=== PATIENT | female | born 1965 | race Caucasian/White ===

== ENCOUNTER 2022-02-15 02:05 | Emergency (ER) | payer SELFPAY ==
[~2022-02-15] VITALS: Ht 165.1 cm; Wt 150.0 kg
[2022-02-15 02:14] VITALS: BP 139/86
[2022-02-15] MEDS ORDERED: ONDA4TAB12 PO (17:33)
[2022-02-15] MEDS ORDERED: CEPH250T PO (17:33)
== END 2022-02-15 04:52 | disposition left against medical advice (07) ==
LOC: ER 02:06
DX: R10.9 Unspecified abdominal pain (principal); Z53.21 Procedure and treatment not carried out due to patient leaving prior to being seen by health care provider

== ENCOUNTER 2022-02-15 15:17 | Emergency (ER) | payer MEDICAID ==
[~2022-02-15] VITALS: Ht 162.6 cm; Wt 63.6 kg
[2022-02-15] MEDS ORDERED: acetaminophen 325mg tablet PO STA (16:05)
[2022-02-15] MEDS ORDERED: normal saline 1000ML IV soln IV ONE (16:05)
[2022-02-15] MEDS ORDERED: proCHLORperazine 10 MG/2 ml inj IV ONE (16:05)
[2022-02-15 16:23] LABS: MEAN PLATELET VOLUME 8.4 FL (7.4-10.4); WHITE BLOOD COUNT 13.1 X10'3 (4.5-11.0)
[2022-02-15 16:25] LABS: BASOPHILS % (AUTO) 0.2 % (0-1); EOSINOPHILS % (AUTO) 0 % (0-6); HEMATOCRIT 43.7 % (35.0-45.0); LYMPHOCYTES # (AUTO) 1.2 X10'3 (1.1-4.8); LYMPHOCYTES % (AUTO) 8.9 % (21-51); MEAN CORPUSCULAR HEMOGLOBIN 30.8 PG (27.0-31.0); MEAN CORPUSCULAR HGB CONC 34.4 g/dL (33.0-36.5); MEAN CORPUSCULAR VOLUME 89.6 FL (78-98); MONOCYTES # (AUTO) 0.8 X10'3 (0-0.9); MONOCYTES % (AUTO) 6.4 % (2-12); NEUTROPHILS # (AUTO) 11.1 X10'3 (1.8-7.7); NEUTROPHILS % (AUTO) 84.5 % (42-75); PLATELET COUNT 293 X10'3 (140-440); RED BLOOD COUNT 4.87 X10'6 (4.20-5.60); RED CELL DISTRIBUTION WIDTH 12.5 % (11.5-14.5)
[2022-02-15 16:42] LABS: ALANINE AMINOTRANSFERASE 24 U/L (12-78); ALBUMIN 5.1 G/DL (3.4-5.0); ALBUMIN/GLOBULIN RATIO 1.2 (1.1-1.5); ALKALINE PHOSPHATASE 80 IU/L (46-116); ANION GAP 17 (8-16); ASPARTATE AMINO TRANSFERASE 22 U/L (10-37); BILIRUBIN,TOTAL 1.4 MG/DL (0.1-1.0); BLOOD UREA NITROGEN 18 MG/DL (7-18); BUN/CREATININE RATIO 18.6 (6.6-38.0); CALCIUM 10.2 MG/DL (8.5-10.1); CHLORIDE 99 MMOL/L (99-107); CREATININE 0.97 MG/DL (0.40-0.90); ETHANOL < 0.010 GM/DL (0.0-0.010); GLUCOSE 125 MG/DL (70-104); LIPASE 51 U/L (73-393); POTASSIUM 3.2 MMOL/L (3.5-5.1); SODIUM 140 MMOL/L (135-145); TOTAL CARBON DIOXIDE 24.5 MMOL/L (24-32); TOTAL PROTEIN 9.2 G/DL (6.4-8.2); eGFR 60 ML/MIN
--- NOTE | 2022-02-15 17:01 | NUR ---
To [place] via gurney by [employer].
[2022-02-15 17:05] LABS: URINE HCG NEGATIVE (NEG)
[2022-02-15 17:07] LABS: CLARITY,URINE CLOUDY (Clear); COLOR,URINE YELLOW (Yellow); GLUCOSE, URINE NEGATIVE (Neg); KETONES,URINE >=80 mg/dl (Neg); LEUKOCYTE ESTERASE ,URINE MODERATE (Neg); NITRITES, URINE POSITIVE (Neg); OCCULT BLOOD,URINE MODERATE (Neg); PROTEIN,URINE 100 mg/dl (Neg); UROBILINOGEN,URINE 0.2 E.U/dL (0.2-1.0)
[2022-02-15 17:13] LABS: UA COLLECTION TYPE CLN CATCH MIDSTREAM
[2022-02-15 17:15] LABS: BACTERIA,URINE 2+ /HPF (Neg); MUCUS STRANDS MANY /LPF (Neg); SQUAMOUS EPITHELIAL CELL,UR MANY /LPF (FEW); WBC CLUMPS,URINE FEW /HPF (NEGATIVE); WBC,URINE 50-100 /HPF (0-4)
[2022-02-15] MEDS ORDERED: CefTRIAXone 2gm/D5W 50ml BAG 50 ML IV ONE (17:30)
[2022-02-15] MEDS ORDERED: ONDA4TAB12 PO (17:33)
[2022-02-15] MEDS ORDERED: CEPH250T PO (17:33)
[2022-02-15 18:20] VITALS: BP 114/72
--- NOTE | 2022-02-15 18:20 | NUR ---
Pt and mother given and understands d/c instructions. Escorted out of the department via wheelchair by tech.
== END 2022-02-15 18:20 | disposition home or self-care (01) ==
LOC: ER 15:17
DX: N39.0 Urinary tract infection, site not specified (principal); R10.32 Left lower quadrant pain; R11.2 Nausea with vomiting, unspecified; Z98.890 Other specified postprocedural states; Z72.89 Other problems related to lifestyle; Z88.0 Allergy status to penicillin; Z88.8 Allergy status to other drugs, medicaments and biological substances; Z79.2 Long term (current) use of antibiotics
CPT/HCPCS: 36415; 74176; 80053; 80320; 81001; 81025; 83605; 83690; 84145; 85025; 87040; 96365; 96375; 99285; J0696; J0780; J7030

== ENCOUNTER 2023-03-06 14:39 | Emergency (ER) | payer MEDICAID ==
[~2023-03-06] VITALS: Ht 165.1 cm; Wt 63.0 kg
[~2023-03-06 14:39] MED LIST: ONDA4TAB12 PO
[2023-03-06 14:58] VITALS: TEMP 99.3
[2023-03-06 15:35] LABS: BASOPHILS % (AUTO) 0.3 % (0-1); EOSINOPHILS # (AUTO) 0.1 X10'3 (0-0.9); EOSINOPHILS % (AUTO) 0.5 % (0-6); HEMATOCRIT 46.8 % (35.0-45.0); HEMOGLOBIN 16.2 g/dl (12.0-16.0); LYMPHOCYTES # (AUTO) 4.5 X10'3 (1.1-4.8); LYMPHOCYTES % (AUTO) 35.9 % (21-51); MEAN CORPUSCULAR HEMOGLOBIN 31.4 PG (27.0-31.0); MEAN CORPUSCULAR HGB CONC 34.6 g/dL (33.0-36.5); MEAN CORPUSCULAR VOLUME 90.6 FL (78-98); MEAN PLATELET VOLUME 8.7 FL (7.4-10.4); MONOCYTES # (AUTO) 1.2 X10'3 (0-0.9); MONOCYTES % (AUTO) 9.3 % (2-12); NEUTROPHILS # (AUTO) 6.7 X10'3 (1.8-7.7); PLATELET COUNT 300 X10'3 (140-440); RED BLOOD COUNT 5.17 X10'6 (4.20-5.60); RED CELL DISTRIBUTION WIDTH 12.8 % (11.5-14.5); WHITE BLOOD COUNT 12.4 X10'3 (4.5-11.0)
[2023-03-06] MEDS ORDERED: morphine 4 MG/ML inj SYRINge IV ONE (15:40)
[2023-03-06] MEDS ORDERED: ondansetron/PF 4mg/2ml inj IV ONE (15:40)
[2023-03-06 15:48] LABS: ALANINE AMINOTRANSFERASE 23 U/L (12-78); ALBUMIN 4.7 G/DL (3.4-5.0); ALBUMIN/GLOBULIN RATIO 1.3 (1.1-1.5); ALKALINE PHOSPHATASE 84 IU/L (46-116); ANION GAP 13 (8-16); ASPARTATE AMINO TRANSFERASE 13 U/L (10-37); BILIRUBIN,TOTAL 1.2 MG/DL (0.1-1.0); BLOOD UREA NITROGEN 19 MG/DL (7-18); BUN/CREATININE RATIO 13.8 (10.0-20.0); CHLORIDE 96 MMOL/L (99-107); CREATININE 1.38 MG/DL (0.40-0.90); GLUCOSE 143 MG/DL (70-104); LIPASE 94 U/L (73-393); POTASSIUM 3.6 MMOL/L (3.5-5.1); SODIUM 135 MMOL/L (135-145); TOTAL CARBON DIOXIDE 26.1 MMOL/L (24-32); TOTAL PROTEIN 8.2 G/DL (6.4-8.2); eCRCL 41 ML/MIN; eGFR 40 ML/MIN
[2023-03-06 15:48] LABS: URINE HCG NEGATIVE (NEG)
[2023-03-06 15:50] LABS: BILIRUBIN,URINE SMALL (Neg); CLARITY,URINE CLOUDY (Clear); COLOR,URINE YELLOW (Yellow); GLUCOSE, URINE NEGATIVE (Neg); KETONES,URINE 15 mg/dl (Neg); LEUKOCYTE ESTERASE ,URINE MODERATE (Neg); NITRITES, URINE POSITIVE (Neg); OCCULT BLOOD,URINE TRACE-INTACT (Neg); PROTEIN,URINE 100 mg/dl (Neg)
[2023-03-06 15:53] LABS: UA COLLECTION TYPE CLN CATCH MIDSTREAM
[2023-03-06 15:56] LABS: BACTERIA,URINE 4+ /HPF (Neg); MUCUS STRANDS FEW /LPF (Neg); SQUAMOUS EPITHELIAL CELL,UR MANY /LPF (FEW); WBC,URINE 30-50 /HPF (0-4)
--- NOTE | 2023-03-06 17:54 | NUR ---
PT STATES " I HAVENT BEEN ABLE TO HOLD ANYTHING DOWN SINCE WEDNESDAY. IM HAVING ABDOMINAL PAIN. THE NAUSEA STARTED ON WEDNESDAY AND IT JUST HAS GOTTEN WORSE AND WORSE."
--- NOTE | 2023-03-06 17:57 | NUR ---
PT STATES SHE CANNOT REMEMBER LAST BOWEL MOVEMENT.
[2023-03-06] MEDS ORDERED: ketorolac trometh. 30mg/ml inj. IM ONE (18:05)
[2023-03-06] MEDS ORDERED: metoclopramide 5 mg/ml inj IM ONE (18:05)
[2023-03-06] MEDS ORDERED: CEFD300C3 PO (18:06)
[2023-03-06] MEDS ORDERED: ONDA4TAB12 PO (18:06)
[2023-03-06 18:29] VITALS: BP 131/52; PULSE 101; RESP 18; O2SAT 99
== END 2023-03-06 18:30 | disposition home or self-care (01) ==
LOC: ER 14:40
DX: N39.0 Urinary tract infection, site not specified (principal); R11.10 Vomiting, unspecified; R10.30 Lower abdominal pain, unspecified; Z72.89 Other problems related to lifestyle; Z87.19 Personal history of other diseases of the digestive system; Z90.49 Acquired absence of other specified parts of digestive tract; Z88.0 Allergy status to penicillin; Z91.041 Radiographic dye allergy status; Z79.2 Long term (current) use of antibiotics
CPT/HCPCS: 36415; 80053; 81001; 81025; 83690; 85025; 96372; 96374; 96375; 99284; J1885; J2270; J2405; J2765